=== PATIENT | male | born 1955 | race Caucasian/White ===

== ENCOUNTER → 2020-07-19 | Outpatient (CLI) | payer OTHER ==
[~2020-07-19] MED LIST: AMLODIPINE BESY10 MG PO; CETIRIZINE HCL10 MG PO; ECOTRIN81 MG PO; ELIQUIS2.5 MG PO; HYDRALAZINE HCL50 MG PO; MELOXICAM15 MG PO; PERCOCET 7.5-31 EACH PO; PRAVASTATIN SOD20 MG PO; SPIRONOLACTONE1 EACH PO; VOLTAREN GEL TD
== END ==
LOC: EMI 13:57
DX: M48.02 Spinal stenosis, cervical region (principal); M50.33 Other cervical disc degeneration, cervicothoracic region; M48.03 Spinal stenosis, cervicothoracic region; M47.022 Vertebral artery compression syndromes, cervical region
CPT/HCPCS: 72156; A9577

== ENCOUNTER → 2020-08-22 | Outpatient (CLI) | payer OTHER | LOC: KOH-I 10:01 | DX: M25.552 Pain in left hip (principal); M79.605 Pain in left leg; M16.12 Unilateral primary osteoarthritis, left hip | CPT/HCPCS: 73502; 73552 ==